=== PATIENT | female | born 1965 | race Caucasian/White ===

== ENCOUNTER 2020-01-08 06:55 | Emergency (ER) | payer BC, SELFPAY ==
[2020-01-08 06:57] VITALS: BP 119/76; PULSE 108; RESP 18; TEMP 37.2; O2SAT 96; BMI 24.1
--- NOTE | 2020-01-08 07:35 | ED.DCSUM_ITS ---
- ER Visit Summary Date of Service: 01/08/20 Chief Complaint: Sore throat and swollen lymph nodes History of Present Illness: The patient is a 54 F past medical history of depression. Patient states she has had a sore throat for last 2 days. Swollen lymph nodes. Able to swallow. Only mild cough nonproductive. Subjectively of fever but temperature only 99. No shortness of breath. Today she also had some nausea and vomiting. Physical Examination: Middle-aged female no acute distress vital signs stable afebrile. Pulse ox 96% on room air no signs of hypoxia. H EENT exam TMs minimally red. Face unremarkable no swelling. Posterior pharynx enlarged tonsils bilaterally. Red bilaterally. Small white exudate. No peritonsillar abscess. Able to swallow. No stridor. No drooling. Moist mucous membranes. Neck anterior chain lymphadenopathy bilaterally. Mildly tender. Trachea midline. Lungs clear to auscultation bilaterally. Heart regular rhythm no murmur rate about 100. Abdomen soft nontender. Patient moving all 4 extremities. No edema. Skin unremarkable no rashes. Neurologically she is awake and alert with no focal motor deficits. Test Results: None Emergency Department Course and Treatment: Discussed with patient rapid strep testing versus just treat her. Would hold off on the test at this time. She will be started on amoxicillin in the ER. Treatment Plan: Amoxicillin 3 times daily for 10 days. Warm salt water gargling. Tylenol and Motrin for pain and fever. Disposition: Discharge Impression: Acute strep throat This note was generated with [employer] dictation software. It may contain incorrect words, spelling, and punctuation that were not noted in review of the chart prior to signing ED Disposition - Plan for ED Patient: Referrals: Anders Aponte, [facility] [Primary Care Provider] -
--- NOTE | 2020-01-08 07:38 | DCINST.ED_ITS ---
ED Disposition - Plan for ED Patient: Disposition: Home or Assisted Living Instructions: Strep Throat Prescriptions: Amoxicillin 500 mg PO TID #30 tab Prescription Printed Referrals: Anders Aponte, [facility] [Primary Care Provider] - Additional Instructions: Warm salt water gargling. Tylenol Motrin for pain. Amoxicillin 3 times a day till gone. Follow-up with your doctor if not improving. You may work but have to use safety precaution such as a mask and gloves.
[2020-01-08] MEDS: AMOXICILLIN 500 MG CAPSULE PO (07:49)
== END 2020-01-08 07:51 | disposition home or self-care (01) ==
LOC: ED 07:49
PROVIDERS: Emergency Provider Emergency Medicine; PCP Nurse Practitioner Family
DX: J02.0 Streptococcal pharyngitis (principal)
CPT/HCPCS: 99283